=== PATIENT | male | born 1965 | race Caucasian/White ===

== ENCOUNTER 2018-01-19 10:15 | Emergency (ER) | payer MEDICAID, OTHER ==
[~2018-01-19] VITALS: Ht 175.3 cm; Wt 68.0 kg
[~2018-01-19 10:15] MED LIST: Cyclobenzaprine Hcl PO; LEVE750T8 PO; LORTA5 PO
[2018-01-19 10:39] VITALS: BP 123/83; PULSE 64; RESP 18; TEMP 98.1; O2SAT 100
--- NOTE | 2018-01-19 10:53 | PD ---
HPI Chief Complaint: Medical Clearance Time Seen by Provider: 10:48 Travel History International Travel<30 days: No Contact w/Intl Traveler<30days: No Traveled to known affect area: No History of Present Illness HPI 52-year-old male presents for evaluation of puncture wound of the left heel. He reports that yesterday he was doing yard work and he stepped on a daryl nail that went through his shoes. He reports that he came in contact with the skin of his left heel but there was no bleeding. He had minimal pain at the site of the injury yesterday, none today. He reports that he washed at home. He does not know when his last tetanus vaccination was and this is his primarily concern right now. He has no other complaints at this time. PFSH Past Medical History Cancer: No Cardiovascular Problems: No Endocrine: Yes (hypoglycemic ) Genitourinary: No Immune Disorder: No Musculoskeletal: No Neurologic: Yes Reproductive: No Respiratory: Yes Seizures: Yes Past Surgical History Abdominal Surgery: No AICD: No Arteriovenous Shunt: No Body Medical Devices: plates and screws in right clavicle Cardiac Surgery: No Ear Surgery: No Endocrine Surgery: No Eye Surgery: No Genitourinary Surgery: No Gynecologic Surgery: No Insulin Pump: No Joint Replacement: No Oral Surgery: No Pacemaker: No Thoracic Surgery: No Social History Alcohol Use: Yes (OCC) Tobacco Use: Yes (1/2 PPD) Substance Use: Yes (marijuana occasionally; per mother history of crack cocaine use ) Allergies-Medications (Allergen,Severity, Reaction): Coded Allergies: No Known Allergies (Verified Adverse Reaction, Unknown, 01/19/18) Reported Meds & Prescriptions Reported Meds & Active Scripts Active Reported Keppra (Levetriacetam) 750 Mg Tab 750 Mg PO BID Review of Systems Musculoskeletal: No: Pain Skin: Positive Other (Positive for puncture wounds. Denies pain or bleeding.) Physical Exam Narrative GENERAL: Well-developed well-nourished male in no acute distress SKIN: Warm and dry. Examination of left foot reveals no obvious puncture wounds. There is no bruising or soft tissue swelling. No bleeding. CARDIOVASCULAR: Regular rate and rhythm. No murmur appreciated. RESPIRATORY: No accessory muscle use. Clear to auscultation. Breath sounds equal bilaterally. Data Data Last Documented VS Vital Signs Date Time Temp Pulse Resp B/P (MAP) Pulse Ox O2 Delivery O2 Flow Rate FiO2 4/30/18 10:39 98.1 64 18 123/83 (96) 100 Orders Orders Tetanus/Diphtheria Tox Adult (Tetanus/Di (01/19/18 11:00) Ed Discharge Order (01/19/18 10:51) MDM Medical Decision Making Medical Screen Exam Complete: Yes Emergency Medical Condition: Yes Medical Record Reviewed: Yes Differential Diagnosis Superficial puncture wound, contusion, abrasion Narrative Course Tetanus status will be updated. He is stable for discharge. Diagnosis Primary Impression: Puncture wound of left foot Med/Other Pt SpecificInfo: No Change to Meds Disposition: 01 DISCHARGE HOME Condition: Stable Yosi Marcelino Jan 19, 2018 10:53
[2018-01-19] MEDS ORDERED: TETANUS/DIPHTHERIA TOXOID ADULT 0.5 ML VIAL IM ONE (11:00)
== END 2018-01-19 11:05 | disposition home or self-care (01) ==
LOC: NEPK 10:15
DX: S91.332A Puncture wound without foreign body, left foot, initial encounter (principal); F12.90 Cannabis use, unspecified, uncomplicated; F17.200 Nicotine dependence, unspecified, uncomplicated; W45.0XXA Nail entering through skin, initial encounter; Y93.H2 Activity, gardening and landscaping; Z23 Encounter for immunization
CPT/HCPCS: 90471; 90714

== ENCOUNTER 2018-01-30 12:31 | Emergency (ER) | payer OTHER ==
[~2018-01-30] VITALS: Ht 175.3 cm; Wt 68.0 kg
[~2018-01-30 12:31] MED LIST changes: -Cyclobenzaprine Hcl PO; -LORTA5 PO
[2018-01-30 12:46] VITALS: BP 136/81; PULSE 72; RESP 18; TEMP 99.3; O2SAT 97
[2018-01-30] MEDS ORDERED: KEPP750T PO (12:54)
[2018-01-30] MEDS ORDERED: CYCL10TA PO (13:43)
[2018-01-30] MEDS ORDERED: NABU1TAB37 PO (13:43)
--- NOTE | 2018-01-30 13:43 | PD ---
HPI . Back pain Chief Complaint: Back/ Neck Pain or Injury Time Seen by Provider: 13:12 Travel History International Travel<30 days: No Contact w/Intl Traveler<30days: No Traveled to known affect area: No History of Present Illness HPI Patient presents with a chief complaint of right low back pain. Onset was 3 days ago. It started after doing heavy yard work. Pain is rated 10/10 and is exacerbated by movement. It is unrelieved by ibuprofen. He does not have any concerning symptoms such as fever, perineal anesthesia, overflow incontinence. He reports a history of chronic low back pain. He states that he has been referred to pain management and has had some injections with no relief. That has been in the remote past. [facility] Past Medical History Anxiety: Yes Depression: Yes Cancer: No Cardiovascular Problems: No Endocrine: Yes (hypoglycemic ) Genitourinary: No Immune Disorder: No Implanted Vascular Access Dvce: Yes Medical other: Yes (SEIZURE DISORDER) Musculoskeletal: No Neurologic: Yes Psychiatric: Yes (suicide attempt 1998; previously diagnosed w/ Bipolar Disorder, untreated) Reproductive: No Respiratory: Yes Seizures: Yes Tetanus Vaccination: < 5 Years Past Surgical History Abdominal Surgery: No AICD: No Arteriovenous Shunt: No Body Medical Devices: plates and screws in right clavicle Cardiac Surgery: No Ear Surgery: No Endocrine Surgery: No Eye Surgery: No Genitourinary Surgery: No Gynecologic Surgery: No Insulin Pump: No Joint Replacement: No Oral Surgery: No Pacemaker: No Thoracic Surgery: No Social History Alcohol Use: Yes (OCC) Tobacco Use: Yes (1/2 PPD) Substance Use: Yes (marijuana occasionally; per mother history of crack cocaine use ) Allergies-Medications (Allergen,Severity, Reaction): Coded Allergies: No Known Allergies (Verified Adverse Reaction, Unknown, 01/19/18) Reported Meds & Prescriptions Reported Meds & Active Scripts Active Reported Keppra (Levetiracetam) 750 Mg Tab 750 Mg PO BID Review of Systems Except as stated in HPI: all other systems reviewed are Neg General / Constitutional: No: Fever, Chills Musculoskeletal: Positive: Myalgias Neurologic: No: Focal Abnormalities, Paresthesia, Incontinence Physical Exam Narrative GENERAL: Awake and alert and in no acute distress. SKIN: Warm and dry. HEAD: Normocephalic/atraumatic. EYES: Pupils are equal. Extraocular movements are intact. NECK: Normal range of motion. CARDIOVASCULAR: Regular rate and rhythm. RESPIRATORY: Nonlabored respirations. MUSCULOSKELETAL: Right low back tenderness. No tenderness of the spine. NEUROLOGICAL: Nonfocal. PSYCHIATRIC: Appropriate mood and affect. Data Data Last Documented VS Vital Signs Date Time Temp Pulse Resp B/P (MAP) Pulse Ox O2 Delivery O2 Flow Rate FiO2 01/30/18 12:46 99.3 72 18 136/81 (99) 97 MDM Medical Decision Making Medical Screen Exam Complete: Yes Emergency Medical Condition: Yes Medical Record Reviewed: Yes (History of alcohol and polysubstance abuse.) Differential Diagnosis Differential diagnosis includes but is not limited to muscular low back pain, DDD, spinal stenosis, epidural abscess, sciatica, kidney infection or stone. Narrative Course Patient presents with right low back pain. He has a history of chronic back problems. He was doing heavy yard work 3 days ago when he had the onset of back pain. I will discharge him to home with prescriptions for Relafen and Flexeril. Diagnosis Primary Impression: Back pain Qualified Codes: M54.5 - Low back pain Patient Instructions: Acute Low Back Pain (DC), General Instructions Med/Other Pt SpecificInfo: Prescription(s) given Scripts Cyclobenzaprine (Flexeril) 10 Mg Tab 10 MG PO TID for Muscle Spasm, #90 TAB 0 Refills Prov: Francine León MD 01/30/18 Nabumetone (Nabumetone) 500 Mg Tab 500 MG PO BID for Pain-Inflammation, #60 TAB 0 Refills Prov: Francine León MD 01/30/18 Disposition: DISCHARGE HOME Condition: Stable Francine León MD January 30, 2018 13:43
[2018-01-30] MEDS ORDERED: CYCLOBENZAPRINE HCL 10 MG TAB PO ONE (13:45)
== END 2018-01-30 13:59 | disposition home or self-care (01) ==
LOC: NEPD 12:31
DX: M54.5 Low back pain (principal); F17.200 Nicotine dependence, unspecified, uncomplicated; F12.90 Cannabis use, unspecified, uncomplicated
CPT/HCPCS: 99283